=== PATIENT | male | born 1980 | race Caucasian/White ===

== ENCOUNTER 2018-04-29 10:27 | Day surgery (SDC) | payer OTHER, SELFPAY ==
[2018-04-29] VITALS (10 sets, daily range): BP systolic 109–141; BP diastolic 72–82; PULSE 60–84; RESP 12–16; TEMP 36.3–36.7; O2SAT 93–99; BMI 32.5
--- NOTE | 2018-04-29 10:40 | PC.NURSE ---
+ food in esophagus, point to nita area. Unable to tolerate liquids, spitting up own secretions. Airway intact. Had esophageal stricture widened by GI endoscopy 7 years ago. Usually manages himself w/ multiple maneuvers but unable to dislodge this piece, has been there since last night. Easy work of breathing.
--- NOTE | 2018-04-29 11:09 | ED_ITS ---
HPI - Nausea/Vomiting/Diarrhea <Ai Adamson PA-C - Last Filed: 05/03/18 21:40> General Chief complaint: Nausea/Vomiting/Diarrhea Stated complaint: FOOD STUCK IN THROAT Time Seen by Provider: 04/29/18 10:45 Source: patient Mode of arrival: ambulatory Limitations: no limitations History of Present Illness HPI Narrative: This 37-year-old male comes to ED secondary to sensation of stuck food bolus. He has a history of esophageal stricture. He states he had this dilated about 7 years ago. He states that he has problems with food sticking about once per month, typically after eating on an empty stomach when he eats too quickly which is what happened yesterday. He is usually able to get it to pass with warm the or carbonated fluids and pressure on his Patricio's apple, or just weight is 8-10 hours and usually gets better however this is not. He states he has not been able to tolerate food or fluids due to this (has not had vomiting, but not able to get food or fluid passed via bolus, ends up coughing it up). He denies any abdominal pain. He denies nausea. He denies pain with swallowing, just has the sticking sensation. For he last ate about 730 last night Related Data Home Medications Medication Instructions Recorded Confirmed No Known Home Medications 04/29/18 04/29/18 Allergies Allergy/AdvReac Type Severity Reaction Status Date / Time No Known Drug Allergies Allergy Verified 04/29/18 13:13 Review of Systems <Ai Adamson PA-C - Last Filed: 05/03/18 21:40> Review of Systems ROS Unobtainable: All systems reviewed & are unremarkable except as noted in HPI and below PFSH <Ai Adamson PA-C - Last Filed: 05/03/18 21:40> Medical History Asthma in remission (Acute) Esophageal stricture (Chronic) No pertinent family history (Chronic) Surgical History No pertinent past surgical history (Acute) Social History Smoking Status: Never smoker Social History Smoking Status: Never smoker Comment: Occ ETOH Exam <Ai Adamson PA-C - Last Filed: 05/03/18 21:40> Narrative Exam Narrative: GENERAL APPEARANCE: Patient sitting comfortably, in no distress. HEENT: PERRL, EOMI, normal oropharynx NECK: Supple, trachea midline with normal swallow LUNGS: Clear to auscultation bilaterally. HEART: Rate and rhythm regular, normal S1 and S2, no S3 or S4. ABDOMEN: Soft, nontender, nondistended, bowel sounds present x 4 quadrants EXTREMITIES: No edema NEUROLOGIC: Alert and oriented with normal speech and coordination Initial Vital Signs Initial Vital Signs: Vital Signs Temperature 98.1 F 04/29/18 10:30 Pulse Rate 73 04/29/18 10:30 Respiratory Rate 14 04/29/18 10:30 Blood Pressure 141/80 H 04/29/18 10:30 Pulse Oximetry 98 04/29/18 10:30 <Nanci Harry DO - Last Filed: 05/04/18 07:22> Initial Vital Signs Initial Vital Signs: Vital Signs Temperature 98.1 F 04/29/18 10:30 Pulse Rate 73 04/29/18 10:30 Respiratory Rate 14 04/29/18 10:30 Blood Pressure 141/80 H 04/29/18 10:30 Pulse Oximetry 98 04/29/18 10:30 Course <JOSELYN Guerrero Last Filed: 05/03/18 21:40> Additional Information: The patient has not been able to successfully dislodge the food bolus as he usually is. No success with glucagon. Dr. Baker [employer] for surgery was kind enough to see the patient here in the ED and will take him to OR shortly to remove Orders Ordered: Discontinued Medications Albuterol (Ventolin) 2.5 mg INH NOW PRN PRN Reason: Coughing, Wheezing, Dyspnea Fentanyl (Sublimaze) 50 mcg IV Q5MIN PRN PRN Reason: Pain, Moderate (4-6) Glucagon (Glucagen) 1 mg IV NOW ONE Stop: 04/29/18 11:01 Last Admin: 04/29/18 11:40 Dose: 1 mg Lactated Ringer's (Lactated Ringers) 1,000 mls @ 42 mls/hr IV NOW ONE Stop: 04/30/18 13:10 Last Infusion: 04/29/18 15:17 Dose: 0 mls/hr Admin: 04/29/18 13:22 Dose: 42 mls/hr Lactated Ringer's (Lactated Ringers) 1,000 mls @ 42 mls/hr IV CONT TIEN Metoclopramide HCl (Reglan) 10 mg IV NOW PRN PRN Reason: Nausea And Vomiting Ondansetron HCl (Zofran) 4 mg IV NOW PRN PRN Reason: Nausea And Vomiting Vital Signs - 8 hr 04/29/18 12:19 04/29/18 13:18 04/29/18 14:33 Temperature 97.9 F 97.4 F L Pulse Rate 60 73 79 Respiratory Rate 16 16 14 Blood Pressure 122/76 128/82 Blood Pressure [Right Arm] 131/78 Pulse Oximetry 97 99 96 04/29/18 14:38 04/29/18 14:43 04/29/18 14:55 Temperature Pulse Rate 80 75 76 Respiratory Rate 14 12 14 Blood Pressure 113/77 110/74 109/76 Blood Pressure [Right Arm] Pulse Oximetry 96 95 93 04/29/18 15:02 04/29/18 15:11 04/29/18 15:28 Temperature 97.4 F L 98.0 F Pulse Rate 77 78 84 Respiratory Rate 16 16 16 Blood Pressure 119/72 115/79 123/78 Blood Pressure [Right Arm] Pulse Oximetry 93 95 98 <Nanci Harry, - Last Filed: 05/04/18 07:22> Orders Ordered: Discontinued Medications Albuterol (Ventolin) 2.5 mg INH NOW PRN PRN Reason: Coughing, Wheezing, Dyspnea Fentanyl (Sublimaze) 50 mcg IV Q5MIN PRN PRN Reason: Pain, Moderate (4-6) Glucagon (Glucagen) 1 mg IV NOW ONE Stop: 04/29/18 11:01 Last Admin: 04/29/18 11:40 Dose: 1 mg Lactated Ringer's (Lactated Ringers) 1,000 mls @ 42 mls/hr IV NOW ONE Stop: 04/30/18 13:10 Last Infusion: 04/29/18 15:17 Dose: 0 mls/hr Admin: 04/29/18 13:22 Dose: 42 mls/hr Lactated Ringer's (Lactated Ringers) 1,000 mls @ 42 mls/hr IV CONT TIEN Metoclopramide HCl (Reglan) 10 mg IV NOW PRN PRN Reason: Nausea And Vomiting Ondansetron HCl (Zofran) 4 mg IV NOW PRN PRN Reason: Nausea And Vomiting Vital Signs - 8 hr 04/29/18 12:19 04/29/18 13:18 04/29/18 14:33 Temperature 97.9 F 97.4 F L Pulse Rate 60 73 79 Respiratory Rate 16 16 14 Blood Pressure 122/76 128/82 Blood Pressure [Right Arm] 131/78 Pulse Oximetry 97 99 96 04/29/18 14:38 04/29/18 14:43 04/29/18 14:55 Temperature Pulse Rate 80 75 76 Respiratory Rate 14 12 14 Blood Pressure 113/77 110/74 109/76 Blood Pressure [Right Arm] Pulse Oximetry 96 95 93 04/29/18 15:02 04/29/18 15:11 04/29/18 15:28 Temperature 97.4 F L 98.0 F Pulse Rate 77 78 84 Respiratory Rate 16 16 16 Blood Pressure 119/72 115/79 123/78 Blood Pressure [Right Arm] Pulse Oximetry 93 95 98 Discharge Plan Discharge Plan Discharge Problem: Esophageal stricture Patient Disposition: Admitted as Observation Discharge Med Rec/Prescriptions Prescriptions: No Action No Known Home Medications RF: 0 Follow up/Referrals: Julito Montana MD [Physician] - 2 Weeks Discharge Orders: Discharge (Order); Ordered 04/29/18 Ordered By: Ce Baker Provider Discharge Instructions Diet: Full Liquid Activity: Full liquid diet advancing to soft foods in the next 3-4 days. Skin/Wound/Dressing Care Report to your healthcare provider any signs of infection, such as:: chills, fever, night sweats and increased pain Visit Report/Discharge Packet Stand Alone Forms: EGD Result: [facility] Discharge Data Attending Provider: Ai Adamson Discharge Interventions Interventions: ED Discharge Assessment Last Done: 04/29/18 13:00 Discharges patient from system. Discharge Date/Time: 04/29/18 15:42 <Nanci Harry DO - Last Filed: 05/04/18 07:22> Cosign ED Attending Margaritaature Attestation: I was immediately available in the department for consultation. This documentation has been reviewed and I agree with assessment and plan. Supervised by Nanci Harry DO
[2018-04-29] MEDS: GLUCAGON,HUMAN RECOMBINANT 1 MG/ML VIAL IV (11:40)
[2018-04-29] MEDS: LACTATED RINGERS 1,000 ML 42 ML IV (13:22)
--- NOTE | 2018-04-29 13:29 | PM.HP.1 ---
History of Present Illness Date Patient Seen: 04/29/18 Time Patient Seen: 13:29 Chief complaint: FOOD STUCK IN THROAT Narrative: Pleasant, articulate, and generally healthy 37-year-old gentleman who presented to the emergency room with an impacted food bolus in his esophagus. He reports that he has a history of esophageal stricture from reflux disease. He had this dilated about 7 years ago by a physician at [facility] can't remember exactly who. He says that about once a week when he eats too fast he feels like something is getting stuck in his throat. This happened to him last night about 8:00 a.m. and has not cleared since then. He denies any pain except for feeling of fullness in his chest. He does remember that when he was dilated at [facility] last time he was told he had a small tear in his esophagus. Patient History Medical History Asthma in remission (Acute) Esophageal stricture (Chronic) No pertinent family history (Chronic) Surgical History No pertinent past surgical history (Acute) Social History Smoking Status: Never smoker Family & Social History Safety & Behavioral: Feels Safe in Current Yes Environment Been Physically Hurt or No Threatened By a Person Tobacco & Substance use: Smoking Status Never smoker alcohol intake frequency 0-2 drinks per day Substance Use Type does not use Meds Home Medications Medication Instructions Recorded Confirmed Type No Known Home Medications 04/29/18 04/29/18 History Allergies Allergy/AdvReac Type Severity Reaction Status Date / Time No Known Drug Allergies Allergy Verified 04/29/18 13:13 Review of Systems Review of Systems All systems reviewed & are unremarkable except as noted in HPI and below Exam Vital Signs (past 8 hours): - 04/29/18 10:30 04/29/18 12:19 04/29/18 13:18 Temperature 98.1 F 97.9 F Pulse Rate 73 60 73 Respiratory Rate 14 16 16 Blood Pressure 141/80 H 122/76 Blood Pressure [Right Arm] 131/78 Pulse Oximetry 98 97 99 Oxygen Delivery Method Room Air Narrative Exam Narrative: Pleasant well-nourished well-developed young man in no obvious distress. He is sitting on the side of the gurney leaning forward so that he can spit into a bag. HEENT: Normocephalic and atraumatic, pupils equal round reactive to light accommodation with anicteric sclera Lungs: Clear to auscultation bilaterally Heart: Regular rate and rhythm without murmur rub or gallop Abdomen: Soft, essentially nontender to palpation with active bowel sounds Extremities: Warm and well perfused Assessment & Plan Assessment Narrative: Pleasant 37-year-old gentleman with a history of esophageal stricture who now has an impacted food bolus. We discussed the risks and benefits of EGD with bolus extraction and the patient expressed a desire to have the procedure.
--- NOTE | 2018-04-29 14:07 | SUR.OPER ---
See Anesthesia notes from Dr Jerry pertaining to vital signs
--- NOTE | 2018-04-29 14:16 | PM.OP.1 ---
Operative Date/Time/Diagnoses Date of procedure: 04/29/18 Time of procedure: 14:16 Pre-op diagnosis: Esophageal food bolus impaction Post-op diagnosis: same Procedure & Clinicians Procedure: Esophagogastroduodenoscopy with removal of food bolus Same procedure as scheduled: Yes Indications: Impacted food bolus in the setting of a history of esophageal stricture Surgeon: Ce Baker Anesthesia Type: General (Dr. Jerry) Operative Notes Findings: 1. Impacted food bolus consistent with ground hamburger at approximately 30 cm from the incisors. 2. Severe esophagitis from 30-40 cm 3. Stricture at the GE junction with an approximately 1-1.5 cm opening Closure Type: not applicable Specimen(s): none sent Estimated Blood Loss (mL): 3 Procedure in detail: After obtaining informed consent the patient brought the operating room and placed in the supine position on the operating table. Following successful induction of general endotracheal anesthesia, appropriate padding of all bony prominences, and placement of appropriate monitors, a time-out was held per SCOAP protocol. A bite block was placed between the patient's teeth. An over tube was placed over the EGD and the esophagus intubated under direct vision. The over tube was then slid into place gently. We were immediately able to visualize an impacted bolus at approximately 30 cm from the incisors. Using a rat-tooth forceps, the bolus was removed in a piecemeal fashion. We were finally able to see the entire esophagus and the remainder of the esophagus and GE junction were cannulated. We noted severe ulcerated distal esophagitis from 30-40 cm. No evidence of perforation or gastric injury was appreciated. The over tube was removed as well as the gastroscope. The patient was allowed to wake from anesthesia without difficulty and taken to the postanesthesia care unit in good condition. Complications: none Condition: stable Disposition: PACU Plan for aftercare: 1. Discharge to home 2. Follow-up with [facility] for repeat endoscopy and dilation.
--- NOTE | 2018-04-29 14:20 | P.OP_ITS ---
Operative Date/Time/Diagnoses Date of procedure: 04/29/18 Time of procedure: 14:16 Pre-op diagnosis: Esophageal food bolus impaction Post-op diagnosis: same Procedure & Clinicians Procedure: Esophagogastroduodenoscopy with removal of food bolus Same procedure as scheduled: Yes Indications: Impacted food bolus in the setting of a history of esophageal stricture Surgeon: Ce Baker Anesthesia Type: General (Dr. Jerry) Operative Notes Findings: 1. Impacted food bolus consistent with ground hamburger at approximately 30 cm from the incisors. 2. Severe esophagitis from 30-40 cm 3. Stricture at the GE junction with an approximately 1-1.5 cm opening Closure Type: not applicable Specimen(s): none sent Estimated Blood Loss (mL): 3 Procedure in detail: After obtaining informed consent the patient brought the operating room and placed in the supine position on the operating table. Following successful induction of general endotracheal anesthesia, appropriate padding of all bony prominences, and placement of appropriate monitors, a time- out was held per SCOAP protocol. A bite block was placed between the patient's teeth. An over tube was placed over the EGD and the esophagus intubated under direct vision. The over tube was then slid into place gently. We were immediately able to visualize an impacted bolus at approximately 30 cm from the incisors. Using a rat-tooth forceps, the bolus was removed in a piecemeal fashion. We were finally able to see the entire esophagus and the remainder of the esophagus and GE junction were cannulated. We noted severe ulcerated distal esophagitis from 30-40 cm. No evidence of perforation or gastric injury was appreciated. The over tube was removed as well as the gastroscope. The patient was allowed to wake from anesthesia without difficulty and taken to the postanesthesia care unit in good condition. Complications: none Condition: stable Disposition: PACU Plan for aftercare: 1. Discharge to home 2. Follow-up with [facility] for repeat endoscopy and dilation.
== END 2018-04-29 15:42 | disposition admitted as inpatient to this hospital (09) ==
LOC: ED 12:57 → AC 13:31 → ED 13:32 → OR 14:31
PROVIDERS: Surgery; Visit Provider Internal Medicine
PROC: 0DJ08ZZ Inspection of Upper Intestinal Tract, Via Natural or Artificial Opening Endoscopic (ICD-10-PCS; CPT 43235; principal; 2018-04-29 13:10)
DX: K22.2 Esophageal obstruction (principal); T18.128A Food in esophagus causing other injury, initial encounter; K20.9 Esophagitis, unspecified; J45.909 Unspecified asthma, uncomplicated
CPT/HCPCS: 43247; 36591; J0330; J1100; J1610; J2250; J2704; J2765; J3010